=== PATIENT | male | born 1980 | race Caucasian/White ===

== ENCOUNTER 2020-01-04 13:17 | Emergency (ER) | payer OTHER ==
[~2020-01-04] VITALS: Ht 180.3 cm; Wt 121.0 kg
[2020-01-04 13:46] VITALS: BP 150/88
== END 2020-01-04 15:39 | disposition home or self-care (01) ==
LOC: ER 13:17
DX: R00.2 Palpitations (principal); Z98.890 Other specified postprocedural states
CPT/HCPCS: 93005; 99283